=== PATIENT | female | born 1960 | race Caucasian/White ===

== ENCOUNTER → 2017-01-01 | Outpatient (CLI) | payer OTHER ==
[~2017-01-01] MED LIST: ASPI-725 PO; CITA-108 PO; CYAN100063 PO; FISH1CAP29 PO; FLAX100029 PO; HYDR-4246 PO; IOHEXOL 300 MG/ML 100ml INJECTION ONE; MULT-806 PO; NAPR220T61 PO; NORMAL SALINE 100 ML ONE; PYRI100T61 PO; SALINE FLUSH 10ml SYRINGE ONE; VITA400T PO; [UNRECOGNIZED DRUG - CODE] PO
--- NOTE | 2017-01-01 11:53 | DI ---
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 Coronal and sagittal two-dimensional reformats. Automated Exposure Control and Iterative Reconstruction dose reducing techniques were utilized. Contrast: Omnipaque 300 120 mL Findings: Neck: Thyroid gland is unremarkable. The parotid and submandibular glands are stable and symmetric. Again there is soft tissue fullness in the left tongue base region. The previously noted adjacent cervical level two lymph node is stable in appearance. No new or enlarging adenopathy in the neck. Skull base is within normal limits. Great vessels are unchanged. Bone structures are stable. Chest: Prior medial right lower lobe groundglass opacity is no longer seen and was presumably infectious or inflammatory. No new pulmonary nodules or masses. Lungs are otherwise stable in appearance with an area of scarring in the right upper lobe. No consolidative pneumonia, pleural effusion or pneumothorax. The central airways are patent. Interval growth in a high prevascular node on image #16 measuring 2.7 cm in short axis compared to 2.5 cm previously. No new mediastinal or axillary adenopathy. Heart and great vessels are unchanged in appearance. No pericardial effusion. Abdomen/pelvis: The liver appears normal. The gallbladder is normal. Enlarging low attenuation splenic mass, now measuring up to 5.8 cm in diameter compared to 4.2 cm previously. Stable exophytic low-attenuation lesion at the inferior aspect of the spleen on image #23 measuring 1.9 cm in diameter. The pancreas and adrenal glands are unchanged. The kidneys are normal. No abdominal lymphadenopathy. Enlarged left inguinal lymph node is stable at 11.5 cm short axis dimension. Right external iliac unchanged. No new or enlarging pelvic adenopathy appreciated. Bladder is normal. Uterus is absent. No free fluid or bowel obstruction. Bone windows are stable without lytic or blastic osseous lesion. Impression: 1. Enlarging prevascular ethan metastasis and splenic mass. 2. Elsewhere there is no new or worsening metastatic disease seen. .
== END ==
LOC: IMA 08:26
PROVIDERS: ATTEND Internal Medicine Hematology & Oncology
DX: C82.28 Follicular lymphoma grade III, unspecified, lymph nodes of multiple sites (principal); C50.912 Malignant neoplasm of unspecified site of left female breast; R16.1 Splenomegaly, not elsewhere classified
CPT/HCPCS: 70491; 71260; 74177; J7050; Q9967

== ENCOUNTER → 2017-01-23 | Outpatient (CLI) | payer OTHER ==
[~2017-01-23] MED LIST changes: -IOHEXOL 300 MG/ML 100ml INJECTION ONE; -NORMAL SALINE 100 ML ONE; -SALINE FLUSH 10ml SYRINGE ONE
== END ==
LOC: WC.BC 09:49
PROVIDERS: ATTEND Internal Medicine Hematology & Oncology
DX: Z12.31 Encounter for screening mammogram for malignant neoplasm of breast (principal); C50.912 Malignant neoplasm of unspecified site of left female breast; N64.59 Other signs and symptoms in breast
CPT/HCPCS: 77063; G0202